=== PATIENT | male | born 1985 | race Caucasian/White ===

== ENCOUNTER 2025-01-17 07:13 | Emergency (ER) | payer SELFPAY ==
[~2025-01-17] VITALS: Ht 188 cm; Wt 84.3 kg
[2025-01-17 07:39] VITALS: BP 138/75; PULSE 75; RESP 18; TEMP 97.8; O2SAT 97
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
[2025-01-17] MEDS: cefTRIAXone SOD 1,000 MG VL IM ONE (07:57)
[2025-01-17] MEDS ORDERED: CEPH500C PO (07:58)
[2025-01-17] MEDS ORDERED: NAPR-746 PO (07:58)
== END 2025-01-17 08:10 | disposition home or self-care (01) ==
LOC: ER 07:13
DX: T23.021A Burn of unspecified degree of single right finger (nail) except thumb, initial encounter (principal); Z79.899 Other long term (current) drug therapy; X08.8XXA Exposure to other specified smoke, fire and flames, initial encounter; Y93.89 Activity, other specified; Y92.89 Other specified places as the place of occurrence of the external cause; Y99.8 Other external cause status
CPT/HCPCS: 96372; 99283; J0696